=== PATIENT | female | born 1955 ===

== ENCOUNTER 2023-03-24 10:05 | Outpatient (OUT) | payer MEDICARE, OTHER, SELFPAY ==
--- NOTE | 2023-03-24 10:25 | XR_ITS ---
The [address] [address] Patient Name: DANISHA MADDEN MRN: [id number] date: 1955 Sex: F Assigned Patient Location: [facility] Current Patient Location: [facility] Accession/Order Number: [id number] Exam Date: 03/24/2023 10:25 Report Date: 03/25/2023 06:30 At the request of: NAKIA MENDOZA Procedure: XR foot RT min 3V PROCEDURE: XR foot RT min 3V HISTORY: RIGHT FOOT PAIN ; chronic second toe pain increasing in severity COMPARISON: XR right ankle and foot 08/11/2022 FINDINGS: BONES:Prominent bunion formation at the first metatarsophalangeal joint. Mild degenerative changes the midfoot and slight flattening of the plantar arch. Old, healed distal fibular fracture. SOFT TISSUES:No visible soft tissue swelling. EFFUSION:None visible. OTHER: Negative. IMPRESSION: 1. Stable prominent bunion formation. 2. No acute abnormality, with specific attention to the second toe. 3. Multifocal mild degenerative changes. Electronically authenticated by: AMEENA MATHEWS Date: 03/25/2023 06:30
== END 2023-03-24 10:06 ==
LOC: RAD 10:05
PROVIDERS: PCP Physician Assistant; Visit Provider Physician Assistant
DX: M19.071 Primary osteoarthritis, right ankle and foot (principal)
CPT/HCPCS: 73630